=== PATIENT | female | born 1990 | race Caucasian/White ===

== ENCOUNTER 2016-04-26 14:22 | Emergency (ER) | payer MEDICAID, OTHER ==
[~2016-04-26] VITALS: Ht 170.2 cm; Wt 65.9 kg
[2016-04-26 14:50] VITALS: Ht 170.2 cm; Wt 65.9 kg
[2016-04-26 16:24] LABS: URINE BLOOD (Dip) POC Negative (NEGATIVE)
[2016-04-26 16:55] LABS: ADD SCAN DIFF NO
[2016-04-26 16:56] LABS: BASOPHIL # 0.1 10^3/ul (0.0-0.1); BASOPHILS % 0.5 % (0.0-2.0); EOSINOPHILS # 0.1 10^3/ul (0.0-0.5); EOSINOPHILS % 0.5 % (0.0-7.0); HEMATOCRIT 36.5 % (37.0-47.0); HEMOGLOBIN 11.9 g/dl (12.0-16.0); LYMPHOCYTES # 1.6 10^3/ul (0.8-2.9); LYMPHOCYTES % 14.1 % (15.0-51.0); MEAN CORPUSCULAR HGB CONC 32.6 g/dl (32.0-37.0); MEAN CORPUSCULAR VOLUME 95.1 fl (82.0-101.0); MEAN PLATELET VOLUME 11.1 fl (7.4-10.4); MONOCYTE # 0.8 10^3/ul (0.3-0.9); MONOCYTES % 7.3 % (0.0-11.0); NEUTROPHIL # 8.7 10^3/ul (1.6-7.5); NEUTROPHILS % 77.2 % (39.0-77.0); PLATELET COUNT 275 10^3/UL (140-415); RED BLOOD COUNT 3.84 10^6/ul (4.20-5.40); RED CELL DISTRIBUTION WIDTH 13.2 % (11.5-14.5); WHITE BLOOD COUNT 11.2 10^3/ul (4.8-10.8)
[2016-04-26 17:08] LABS: ALBUMIN 4.1 g/dl (3.3-4.9)
[2016-04-26 17:09] LABS: POTASSIUM 3.7 mmol/L (3.5-5.1)
[2016-04-26 17:11] LABS: ALBUMIN/GLOBULIN RATIO 1.36; BILIRUBIN,INDIRECT 0.3 mg/dl (0-1.1); BILIRUBIN,TOTAL 0.3 mg/dl (0.2-1.3); CREATININE 0.5 mg/dl (0.44-1.00); TOTAL PROTEIN 7.1 g/dl (6.1-8.1)
[2016-04-26 17:12] LABS: CALCIUM 9.1 mg/dl (8.4-10.2)
--- NOTE | 2016-04-26 17:42 | RADRPT ---
PROCEDURE: XR Chest. CLINICAL INDICATION: Chest pain and shortness of breath. TECHNIQUE: Single frontal view. COMPARISON: None. FINDINGS: The lungs are clear. The heart size is normal. There is no pleural effusion. There is no pneumothorax. IMPRESSION: 1. Normal chest radiograph. RPTAT: QQ .Ace Cano MD, MD Date Time Electronically viewed and signed by .Ace Cano MD, MD on 04/26/2016 17:42 .R/
[2016-04-26] MEDS ORDERED: LORAZEPAM 0.5 MG TAB PO ONE (18:00)
[2016-04-26 19:26] LABS: T3 UPTAKE 39.1 % (23.5-40.5)
[2016-04-26 19:40] LABS: THYROID STIMULATING HORMONE 1.17 MIU/L (0.465-4.680)
[2016-04-26] MEDS ORDERED: LORA-441 PO (19:42)
--- NOTE | 2016-04-26 19:46 | ERD ---
ER Documentation Chief Complaint Date/Time DATE: 04/26/16 TIME: 19:43 Chief Complaint sob HPI 26-year-old female presents with 5 month history of multiple complaints. She has intermittent sensation of shortness of breath usually after eating. Complains of numbness in her hands. She feels like passing out sometimes as well as palpitations. She denies any recent illnesses, fevers, vomiting. She denies any sustained anterior chest pain. She has been putting off going to the doctor for this but had a more severe episode today. She called paramedics and include her without any signs or symptoms of serious illness. She admits to stress but she has never had symptoms due to stress before ROS All systems reviewed and are negative except as per history of present illness. Medications Home Meds Active Scripts Lorazepam* (Ativan*) 0.5 Mg Tablet, 0.5 MG PO Q8, #14 TAB Prov:AMY MAYERS MD 04/26/16 PMhx/Soc Medical and Surgical Hx: pt denies Medical Hx History of Surgery: Yes (appendectomy) Hx Alcohol Use: No Hx Substance Use: No Hx Tobacco Use: No Physical Exam Vitals Vital Signs Date Time Temp Pulse Resp B/P Pulse Ox O2 Delivery O2 Flow Rate FiO2 04/26/16 14:50 98.5 89 19 125/78 100 Physical Exam Const: [] Head: Atraumatic Eyes: Normal Conjunctiva ENT: Normal External Ears, Nose and Mouth. Neck: Full range of motion..~ No meningismus. Resp: Clear to auscultation bilaterally Cardio: Regular rate and rhythm, no murmurs Abd: Soft, non tender, non distended. Normal bowel sounds Skin: No petechiae or rashes Back: No midline or flank tenderness Ext: No cyanosis, or edema Neur: Awake and alert Psych: Normal Mood and Affect Result Diagram: 04/26/16 1630 04/26/16 1630 Results 24 hrs Laboratory Tests Test 04/26/16 16:22 04/26/16 16:30 Bedside Urine Blood Negative Bedside Urine Glucose (UA) Negative Bedside Urine Ketones (LAB) 3+ Bedside Urine Leukocyte Esterase (L Negative Bedside Urine Nitrite (LAB) Negative Bedside Urine Protein (LAB) Negative Bedside Urine pH (LAB) 6.0 Alanine Aminotransferase (ALT/SGPT) 18IU/L Albumin 4.1g/dl Albumin/Globulin Ratio 1.36 Alkaline Phosphatase 54IU/L Anion Gap 19 Aspartate Amino Transf (AST/SGOT) 16IU/L Basophils # 0.110^3/ul Basophils % 0.5% Blood Urea Nitrogen 8mg/dl Calcium Level 9.1mg/dl Carbon Dioxide Level 25mmol/L Chloride Level 103mmol/L Creatinine 0.50mg/dl Direct Bilirubin 0.00mg/dl Eosinophils # 0.110^3/ul Eosinophils % 0.5% Free Thyroxine Index 3.68ug/ml Globulin 3.00g/dl Glucose Level 87mg/dl Hematocrit 36.5% Hemoglobin 11.9g/dl Indirect Bilirubin 0.3mg/dl Lymphocytes # 1.610^3/ul Lymphocytes % 14.1% Mean Corpuscular Hemoglobin 31.0pg Mean Corpuscular Hemoglobin Concent 32.6g/dl Mean Corpuscular Volume 95.1fl Mean Platelet Volume 11.1fl Monocytes # 0.810^3/ul Monocytes % 7.3% Neutrophils # 8.710^3/ul Neutrophils % 77.2% Nucleated Red Blood Cells # 0.010^3/ul Nucleated Red Blood Cells % 0.0/100WBC Platelet Count 64437^3/UL Potassium Level 3.7mmol/L Red Blood Count 3.8410^6/ul Red Cell Distribution Width 13.2% Sodium Level 143mmol/L Thyroid Stimulating Hormone (TSH) 1.170MIU/L Thyroxine (T4) 9.4ug/dl Total Bilirubin 0.3mg/dl Total Protein 7.1g/dl Triiodothyronine (T3) Uptake 39.1% White Blood Count 11.210^3/ul Current Medications Medications (Trade) Dose Ordered Sig/Mary Ellen Route PRN Reason Start Time Stop Time Status Last Admin Dose Admin Lorazepam (Ativan) 0.5 mg ONCE ONCE PO 04/26/16 18:00 04/26/16 18:01 DC 04/26/16 18:03 Procedures/MDM CBC shows a leukocytosis of 11, possibly stress response. Slight anemia. CMP is normal. Thyroid panel was normal. Urine is negative for signs of infection , glucose or blood. HCG is negative . EKG: Rate/Rhythm: [Normal Sinus Rhythm] rate equals 84 QRS, ST, T-waves: [No changes consistent w/ acute ischemia] Impression: [No evidence of ischemia or arrhythmia]. Impression-no acute findings on EKG. Occasional premature atrial contractions. Chest X-ray 1V Interpreted by me: Soft Tissue: No acute abnormalities Bones: No acute abnormalities Mediastinum/Cardiac Silhouette/Lungs: [No acute abnormalities]. Impression have a normal 1 view chest x-ray Patient was having an episode of palpitations during the ED course and a repeat EKG shows no acute abnormalities, only premature atrial contractions rate equals 84. Patient was given Ativan 0.5 mg by mouth. Patient presents with multiple complaints of shortness of breath palpitations, paresthesias is worse after eating. She may have an anxiety or panic attack component to her symptoms. No evidence of significant cause of the patient's symptoms. Patient was discharged home with short course of Ativan and further observation. Patient was advised to follow-up with primary doctor for further evaluation and possible cardiology referral for recurrent palpitations. Signs or symptoms do not suggest PE, acute coronary syndrome, sepsis, acute abdomen, life- threatening arrhythmias Departure Diagnosis: Primary Impression: Palpitations Additional Impression: Shortness of breath Condition: Stable Patient Instructions: Coping with Shortness of Breath: Controlling Stress, Palpitations Additional Instructions: All examinations normal today. Consider cardiology evaluation for persistent symptoms. May need authorization from primary doctor. Recheck otherwise for new or worsening symptoms. Consider hyperventilation or possible panic is because of palpitations. AMY MAYERS MD Apr 26, 2016 19:46
[2016-04-26] MEDS ORDERED: FAMO-18 PO (19:47)
[2016-04-26 20:04] VITALS: BP 118/64; PULSE 64; RESP 16; TEMP 98.5
== END 2016-04-26 20:05 | disposition home or self-care (01) ==
LOC: FTE 14:22
DX: R00.2 Palpitations (principal)
CPT/HCPCS: 71010; 80053; 81003; 84436; 84443; 84479; 85025; 93005; Z7502; Z7610